=== PATIENT | male | born 1945 | race Caucasian/White ===

== ENCOUNTER 2016-05-30 22:45 | Inpatient (IN) | payer OTHER ==
--- NOTE | ~2016-05-30 | HP ---
History And Physical [address] [place]. [address] NAME: GERBER DREW : 43 STATUS : ADM IN [facility]#: [id number] AGE: 71 ADM/REG DATE : 05/31/16 MR#: [id number] REPORT SERV DATE: 05/31/16 DICTATED BY: MARCO ANTONIO BAE DATE: 05/31/16 REPORT STATUS : Draft TRANSCRIBED BY: MODPb DATE: 05/31/16 DATE OF ADMISSION: 05/30/2016 PRIMARY WET END HELPER: Nataly Driscoll D.O. CHIEF COMPLAINT: Shortness of breath and fluid buildup. HISTORY OF PRESENT ILLNESS: Mr. Drew is a 71-year-old, gentleman with history of chronic diastolic congestive heart failure, coronary artery disease with prior coronary artery bypass grafting, uncontrolled insulin-dependent diabetes mellitus type 2, chronic kidney disease stage 3 as well as history of aortic stenosis, status post transcatheter aortic valve replacement who presents to emergency department today with reports of worsening shortness of breath and fluid buildup. The patient was last admitted to our service in 09/2015 for acute on chronic diastolic congestive heart failure. The patient was successfully diuresed and then discharged to home. The patient is a very poor historian but best I can glean is that since his last admission to our service he has had multiple admissions to [facility] for CHF exacerbations as well as what appears to be a significant GI bleed. The patient states that during his admission for GI bleed he was taken off the Pradaxa that he had previously been on. The patient states that he has been compliant with his diuretic regimen although he cannot tell me the name or dosages of his diuretics. He does admit compliance to his sodium and fluid restriction but does readily admit to no longer keeping a close eye on his daily weights as he just does not feel up to it anymore. He primarily presents with worsening shortness of breath, orthopnea, PND, lower extremity edema as well as profound abdominal bloating and distention. He denies any fevers, night sweats, chills, chest pain, palpitations, cough, sputum production, nausea, vomiting, diarrhea, constipation, melena, hematochezia, or hemoptysis. He does report that at some point in the last few months Dr. Pantoja placed a Pantoja catheter for what I presume to be urinary retention and he currently has that in place. He also has some chronic lower extremity wounds that he has been doctoring himself for the past few weeks. The patient also complains of a diffuse primarily truncal pruritic erythematous rash that he is very anxious to learn what it is. Comprehensive review of systems otherwise negative unless listed in history of present illness. Initial evaluation in the emergency department is noted for a BNP of 1228. Chest x-ray shows some mild intravascular volume overload. Potassium is 5.4. Creatinine is 1.8. CT of the abdomen and pelvis showed moderate ascites as well as small to moderate right-sided greater than left-sided pleural effusion. The patient was given 1 mg of IV Bumex as well as some insulin glucose for his hyperkalemia and admitted to the Hospitalist Service. History And Physical [address] [address] NAME: GERBER DREW : 43 STATUS : ADM IN [facility]#: [id number] AGE: 71 ADM/REG DATE : 05/31/16 MR#: [id number] REPORT SERV DATE: 05/31/16 DICTATED BY: MARCO ANTONIO BAE DATE: 05/31/16 REPORT STATUS : Draft TRANSCRIBED BY: ROLDAN DATE: 05/31/16 PREVIOUS MEDICAL HISTORY: 1. Chronic diastolic congestive heart failure with ejection fraction of 50%. 2. Coronary artery disease with prior coronary artery bypass grafting. 3. Atrial fibrillation, no longer on anticoagulation secondary to GI bleed. 4. Hypertension. 5. Hyperlipidemia. 6. Insulin-dependent diabetes mellitus, type 2. Hemoglobin A1c of 8.8. 7. Chronic kidney stage III, baseline creatinine approximately 1.3 to 1.5. 8. Anemia of chronic disease. 9. Pulmonary hypertension. 10.Urinary retention. 11.History of GI bleed. SURGICAL HISTORY: 1. Pacemaker insertion. 2. Coronary artery bypass grafting. 3. Left carotid endarterectomy. 4. Transcatheter aortic valve replacement with placement of bioprosthetic aortic valve secondary to perivalvular leak. ALLERGIES: NO KNOWN DRUG ALLERGIES. HOME MEDICATIONS: The patient is unable to recall his medications. This will need to be confirmed by pharmacy in the morning. SOCIAL HISTORY: He is a former smoker. Denies alcohol. Denies illicit's. Denies any previous significant history of alcohol abuse. FAMILY MEDICAL HISTORY: Unknown. He is unable to provide me any history for his family. LABS AND IMAGIN. White count 7.9, hemoglobin 9.5, hematocrit is 30.8, platelet count is 218. INR is 1.4. 2. Sodium is 137, potassium 5.4, chloride 99, carbon dioxide 32, BUN 43, creatinine 1.80, glucose is 184, calcium is 8.4, magnesium is 2.6, protein 7.2, albumin is 3.5, bilirubin is 0.3, ALT is 13, AST 16, alkaline phosphatase is 87. 3. Troponin less than 0.02. BNP is 1228. 4. Chest x-ray per my review shows right greater left pleural effusion as well as mild intravascular volume overload and cardiomegaly. 5. CT scan of the abdomen and pelvis shows again right greater left pleural effusion as well as moderate ascites. Otherwise, no acute abdominopelvic pathology. 6. EKG per my review shows AV paced rhythm with no evidence of any T-wave changes secondary to hyperkalemia. No evidence of any acute ischemia or infarction. PHYSICAL EXAMINATION: VITAL SIGNS: Temperature is 97.0 degrees Fahrenheit, pulse is 67, respirations 20, saturating 95% on room air. Blood pressure initially 99/54, on recheck it is now 119/61, History And Physical [address] [place]. [address] NAME: GERBER DREW : 43 STATUS : ADM IN [facility]#: [id number] AGE: 71 ADM/REG DATE : 05/31/16 MR#: [id number] REPORT SERV DATE: 05/31/16 DICTATED BY: MARCO ANTONIO BAE DATE: 05/31/16 REPORT STATUS : Draft TRANSCRIBED BY: MODL DATE: 05/31/16 pulse of 60, saturating 100% on room air. GENERAL: The patient is awake, alert, in no acute distress, resting comfortably. He is a morbidly obese, chronically ill-appearing male. HEENT: Atraumatic and normocephalic. Moist mucous membranes. Pupils are equal, round, reactive to light and accommodation. Extraocular eye movements are intact. No scleral icterus. NECK: Some mild jugular venous distention. No carotid bruits. CARDIAC: Regular rate and rhythm. 2/6 systolic murmur, heard best over left lower sternal border. LUNGS: Decreased breath sounds in the bases. Some mild inspiratory crackles and rales as well. ABDOMEN: Obese and distended with a positive ascitic fluid wave. Hypoactive bowel sounds throughout. No rebound, guarding, rigidity. EXTREMITIES: The patient has a chronic venous stasis changes, bilateral lower extremities as well as [place] induration and 2+ lower extremity edema. The patient also has on the right lower extremity some medial and anterior superficial ulcerations with some serous drainage. SKIN: Warm and dry except for noted above. The patient also has a diffuse, deep, erythematous rash primarily over his truncal region with loss of excoriations from previous scratching. PSYCH: Affect appropriate. NEURO: Alert and oriented x3. Cranial nerves 2 through 12 grossly intact. Speech is normal. Gait is not assessed. ASSESSMENT AND PLAN: Now, Mr. Drew is a 71-year-old gentleman, history of chronic diastolic congestive heart failure who presents with evidence of volume overload. PROBLEM LIST: 1. Acute on chronic diastolic congestive heart failure. 2. Acute kidney injury on chronic kidney disease stage 3. 3. Hyperkalemia. 4. Insulin-dependent DM, type 2. 5. History of coronary artery disease. 6. History of atrial fibrillation. 7. Lower extremity venous stasis and venous stasis ulcers. 8. Rash. PLAN: 1. Acute on chronic diastolic congestive heart failure. We will initially diurese patient with IV Bumex. Place him on fluid and sodium restriction. Given it has been greater than six months since his last admission here and it appears that he has been to [facility] multiple times, we will repeat an echocardiogram to assess for ventricular function as well as assess for valvular function. We will also try to obtain [facility] records as it appears he has been admitted there multiple times in the recent past. We will also consult Cardiology for assistance. 2. Abdominal ascites. We will first attempt diuresis but if that is unsuccessful the patient may need therapeutic and diagnostic paracentesis. He denies any history of liver disease. However, CT of the abdomen and pelvis does is concern for possible History And Physical [address] [address] NAME: GERBER DREW : 43 STATUS : ADM IN [facility]#: [id number] AGE: 71 ADM/REG DATE : 05/31/16 MR#: [id number] REPORT SERV DATE: 05/31/16 DICTATED BY: MARCO ANTONIO BAE DATE: 05/31/16 REPORT STATUS : Draft TRANSCRIBED BY: ROLDAN DATE: 05/31/16 cirrhotic-type changes. Of note, his LFTs here are normal. 3. Acute kidney injury on chronic kidney disease stage III, likely secondary to cardiorenal syndrome. We will reassess with diuresis. 4. Hyperkalemia. No EKG changes noted. He has received insulin and glucose as well as diuretics. We will hold any potassium-sparing diuretics and/or nephrotoxic agents. We will also order some Kayexalate, place him on cardiac telemetry monitoring. Follow up repeat potassium level in the morning. 5. Lower extremity venous stasis with venous stasis ulcers. Wound Care consultation. Does not appear actively infected at this time. 6. Insulin-dependent diabetes mellitus type 2. Check hemoglobin A1c as well as place the patient on level 2 insulin sliding scale. 7. Coronary artery disease with prior coronary artery bypass grafting. The patient denies any chest pain. EKG and cardiac enzymes are unremarkable. 8. History of aortic stenosis, status post TAVR. Followup repeat echocardiogram for valvular function. 9. DVT prophylaxis. Heparin subcu. CODE STATUS: The patient wished to be full code. KARAN/ROLDAN Marco Antonio Bae MD / [id number] CC: MD Nataly Quan D.O.
--- NOTE | ~2016-05-30 | CN ---
Consultation Report [facility] [address] [place]. [address] NAME: GERBER CRUZ : 43 STATUS : ADM IN PAT#: [id number] AGE: 71 ADM/REG DATE : 05/31/16 MR#: [id number] REPORT SERV DATE: 05/31/16 DICTATED BY: DATE: REPORT STATUS : Draft TRANSCRIBED BY: MODL DATE: 05/31/16 CONSULTATION DATE OF CONSULTATION: 05/31/2016 REASON FOR CONSULTATION: Acute kidney injury with volume overload. HISTORY OF PRESENT ILLNESS: This is a fairly pleasant 71-year-old male patient, who has actually been seen previously in our practice once in [address] Butts for proteinuria with normal renal function and again by Dr. Mikala Guzmán on 12/13/2013. There is no notation of his baseline creatinine from our practice at those times; however, it is noted in dictations that his creatinine was "normal" with isolated evidence of proteinuria. Dr. Butts does mention in his initial consultation that he felt that likely his proteinuria was attributable to diabetic nephropathy. His initial workup included a renal ultrasound, which showed no evidence of hydronephrosis and no evidence of elevated postvoid residual. No renal artery stenosis. The patient was slated to be seen in followup and was not seen again until [address] Guzmán when he was sent back by his primary care provider to reestablish care. According to the patient's family member who was at bedside this morning, the patient has not been seen by a nephrology provider since that point. He presents to [facility] with a complaint of increasing volume overload with lower extremity edema, onset approximately three to five days ago and continued to worsen. The patient is chronically maintained on LUANA inhibitor as well as Bumex dosing at 2 mg and metformin for assistance in control of his diabetes. It is unclear baseline control of his diabetes or control of his hypertension as this is not routinely measured at home according to his family member who was at bedside. The patient is very hard of hearing and somewhat somnolent from his late night in the emergency department but responsive. Thusly, he is difficult to gather recent HPI or medical history from. Much of the medical history that is provided today is provided by his family member who is at bedside. The patient has been told in previous evaluations that he does have an enlarged prostate, but denies difficulty with urinary retention. Previous workups indicate that he had no evidence of urinary retention on ultrasound in our office in 2008 and he is said to have been evaluated by Dr. Pantoja, previous, but it is unclear on review with the patient's family member who is providing much of the medical information when his last workup was with Dr. Pantoja. The patient is sleeping this afternoon, but again is arousable and appropriate. He is hard of hearing. It appears his baseline creatinine here has been around 0.8 to 1.26 over the calender year of 2015. Again, he was seen in our office previous in durations of his care, but did not maintain followup. Appropriately on entry, his lisinopril, metformin, potassium, and Bumex have been held and attempts are underway to initiate diuresis with IV Bumex. PAST MEDICAL HISTORY: Positive for proteinuria as listed above with apparent normal renal function in [address] Kody Butts, with further evaluation by Dr. Mikala Guzmán in 12/2013 with the patient lost to follow up post that evaluation in 12/2013. The remainder of his medical history is positive for chronic diastolic congestive heart failure with ejection fraction of 50%, coronary artery disease with previous CABG, atrial Consultation Report [address] [place]. [address] NAME: GERBER CURZ : 43 STATUS : ADM IN [facility]#: [id number] AGE: 71 ADM/REG DATE : 05/31/16 MR#: [id number] REPORT SERV DATE: 05/31/16 DICTATED BY: DATE: REPORT STATUS : Draft TRANSCRIBED BY: MODPb DATE: 05/31/16 fibrillation with no current anticoagulation secondary to GI bleed, hypertension, hyperlipidemia, insulin-dependent diabetes mellitus with a hemoglobin A1c noted at 8.8, chronic kidney disease stage 3, baseline creatinine as listed above, anemia of chronic kidney disease, pulmonary hypertension, urinary retention, and history of GI bleed. PAST SURGICAL HISTORY: Includes pacemaker insertion, CABG, left carotid enterectomy, transcatheter aortic valve replacement with placement of bioprosthetic aortic valve secondary to perivalvular leak. ALLERGIES: HE LISTS NO KNOWN MEDICATION ALLERGIES. MEDICATIONS: Active medications on entry are as follows: ProAir HFA two puffs inhaled q.6 hours p.r.n., albuterol one neb b.i.d. p.r.n., ASA 81 mg daily, Lipitor 10 mg p.o. q.h.s., Bumex 2 mg p.o. b.i.d., carvedilol 25 mg p.o. b.i.d., Ferrex 150 mg p.o. daily, Advair one puff inhaled daily p.r.n., Levemir at 20 units subcu q.h.s. insulin NovoLog via sliding scale, Prinivil 10 mg p.o. daily, metformin 1000 mg p.o. b.i.d., Mycostatin one topical p.r.n., Prilosec 20 mg p.o. daily, p.r.n., Percocet 1 tablet p.o. q.6 hours p.r.n., Klor-Con 20 mEq p.o. daily, Desyrel 100 mg p.o. q.h.s., stool softener 1 capsule daily p.r.n. with no specifics provided regarding name of medication. SOCIAL HISTORY: No ETOH. No illicit drugs. No tobacco. He does have a remote history of smoking approximately 2 to 2-1/2 packs a day according to his family member who is present but has quit many years ago. FAMILY HISTORY: Noncontributory and not reviewed during this consultation and dictation. PHYSICAL EXAMINATION: VITAL SIGNS: Blood pressure 142/61, temperature 96.6, respiratory rate 18, heart rate is 59 beats per minute, and he is on 100% oxygen saturation. GENERAL: He is somnolent, but arousable and appropriate. Very hard of hearing. HEENT: Normocephalic and atraumatic. Normal ocular movements. No scleral icterus. No conjunctival pallor is appreciated. NECK: Supple without thyromegaly. No JVD or mass. CHEST: Shows positive S1 and S2. No rubs or gallops. LUNGS: Diminished. Clear to auscultation throughout. Otherwise with normal expansion effort bilaterally without noted rhonchi or wheezes. GASTROINTESTINAL: Shows a rounded abdomen which is positive for ascites. GENITOURINARY: Examination is deferred. EXTREMITIES: Show positive pulses to all four extremities. He does have noticeable 2+ to 3+ lower extremity edema bilaterally with wrappings of loose gauze. SKIN: Warm, dry, and intact to visualized surfaces. No rash, lesions, or ecchymosis. He does have some redness excoriation to his bilateral lower extremities. NEUROLOGIC: He appears to be grossly intact. Nonfocal. He is somewhat somnolent, but arousable and hard of hearing. He is of appropriate mood and affect. Consultation Report [facility] [address] [place]. [address] NAME: GERBER CRUZ : 43 STATUS : ADM IN PAT#: [id number] AGE: 71 ADM/REG DATE : 05/31/16 MR#: [id number] REPORT SERV DATE: 05/31/16 DICTATED BY: DATE: REPORT STATUS : Draft TRANSCRIBED BY: MODL DATE: 05/31/16 LABORATORY DATA: Pertinent laboratories and imaging to this evaluation: Most recent troponin less than 0.02. CT of the abdomen and pelvis shows small effusions, moderate amount of ascites, cardiomegaly, prior TAVR replacement, question of early development of cirrhosis of the liver Chest, PA and lateral: Prior TAVR as well as remote CABG with pacemaker. Small right pleural effusion and some mild atelectasis at the left lung base. Urinalysis is hazy in appearance, negative for protein, glucose, or ketones with a large amount leukocyte esterase, with 14 RBCs per high-powered field, with greater than 182 white blood cells per high-powered field, and few bacteria. Electrolyte profile shows sodium 137, potassium 5.4, chloride 99, CO2 of 32, BUN 43, creatinine 1.80, reflected GFR at 37 mL/minute, glucose of 184. Calcium 8.4. Magnesium 2.6. Alkaline phos 87, ALT and AST are 13 and 16 respectively. Troponin less than 0.02. B-natriuretic peptide 1228.4. CBC: White blood cell count is 7.9, RBC 3.26, hemoglobin 9.5, hematocrit 30.8, and platelets 218. IMPRESSION AND PLAN: This is a 71-year-old male patient with acute kidney injury with previous baseline creatinine noted to be at 0.8 to 1.26, now at 1.8, admitted with increasing lower extremity edema, noted ascites, and acute kidney injury. He has had previous evaluations by Dr. Kody Butts in 2008 for proteinuria, which was felt to be relatable to diabetic nephropathy with patient not seeking followup after the initial evaluation, then request for re-evaluation in 12/[address] Mikala Guzmán, with the patient failing to keep slated follow-ups that without evaluation at that point. He does not exhibit identified protein in his urine on urinalysis provided today. Metformin, lisinopril, potassium, and Bumex have all been held appropriately. There is diuresis efforts are underway with IV Bumex at 1 mg IV. Noted in review his blood pressures are sub 100 systolic blood pressure readings which may indicate some level of acute tubular necrosis due to hypoperfusion with hypotension. Also, we must consider the possibility of urinary retention with previous notations of an enlarged prostate. No urinary output identified at this point. He does possibly have a urinary tract infection judging by his urinalysis, which will be deferred to the primary team. We would avoid nephrotoxic agents such as Bactrim to treat this if there are plans are to provide IV antibiotic coverage going forward. In regard to his current acute kidney injury, check his postvoid residual, check urine sodium, urine creatinine, and urine urea as he is chronically maintained on p.o. diuretics. Continue dosing of Bumex, but increase to 2 mg IV q.8. Albumin is normal at 3.5 on 05/30/2016. We will not provide albumin dosing to provide assistance in mobilization of fluid. We will place the patient on strict I's and O's daily weights. Restrict sodium and restrict fluid intake. Follow the patient closely with serial laboratories and modify treatment plan based on clinical presentation of the patient's laboratory results, further consultation with renal attending. We appreciate consultation. We are glad to follow. Consultation Report [facility] [id number] [facility] [place]. [address] NAME: GERBER CRUZ : 43 STATUS : ADM IN PAT#: [id number] AGE: 71 ADM/REG DATE : 05/31/16 MR#: [id number] REPORT SERV DATE: 05/31/16 DICTATED BY: DATE: REPORT STATUS : Draft TRANSCRIBED BY: ROLDAN DATE: 05/31/16 /ROLDAN Vernon Lui NP / [id number] CC: Andrei Pena MD
--- NOTE | ~2016-05-30 | DS ---
Discharge Summary [address] [id number] [place]. [address] NAME: GERBER CRUZ : 43 STATUS : DIS IN PAT#: [id number] AGE: 71 ADM/REG DATE : 05/31/16 MR#: [id number] REPORT SERV DATE: 06/04/16 DICTATED BY: FLAKO MATTHEWS DATE: 06/03/16 REPORT STATUS : Draft TRANSCRIBED BY: MODL DATE: 06/03/16 ADMISSION DATE: 05/31/2016 DISCHARGE DATE: 06/03/2016 DISCHARGE DIAGNOSES: 1. Acute diastolic heart failure. 2. Acute kidney injury on chronic kidney disease, stage III. Resolved to baseline. Most recent creatinine of 1.16. 3. Ascites. 4. Hypothyroidism, that is new. 5. Urinary tract infection, Escherichia coli, Klebsiella in the setting of a chronic Pantoja catheter. 6. Diabetes type 2, hemoglobin A1c of 6.0. 7. History of coronary artery disease, coronary artery bypass grafting, TAVR, and pacemaker. 8. Nonspecific macular papular skin rash on trunk. DISCHARGE MEDICATIONS: Aspirin 81 mg daily; Lipitor 10 mg at bedtime; Coreg 25 mg twice a day; Ferrex 150 mg daily; Duricef 500 mg twice a day for a total of nine more doses; Levemir 22 units subcutaneously at bedtime; Synthroid 25 mcg daily, new prescription for this; Bumex 2 mg p.o. twice a day; Glucophage 1000 mg twice a day; Humalog on a sliding scale with meals; ProAir inhaler 2 puffs every 8 hours p.r.n.; potassium chloride 20 mEq daily; trazodone 100 mg at bedtime p.r.n. for insomnia; Percocet 10/325 one tablet every 6 hours p.r.n.; lisinopril 10 mg daily; Mycostatin apply topically daily p.r.n.; Prilosec 20 mg daily; Advair Diskus 250/50 one puff inhaled daily; albuterol nebulizers twice a day p.r.n. for shortness of breath; and stool softener [id number] daily. HISTORY OF PRESENT ILLNESS: 71-year-old white male, who presented with shortness of breath and fluid overload. Please see the initial H and P of Dr. Kody Stewart as the patient is admitted to the Hospitalist Service for further evaluation and treatment. CONSULTANTS DURING THIS ADMISSION: Include [facility] and also Cardiology Dr. Driscoll. PROCEDURES AND IMAGING DURING THIS ADMISSION: Include a CT of the abdomen and pelvis showing small effusions, moderate amount of ascites, cardiomegaly, and prior TAVR replacement. An abdominal ultrasound showing small volume ascites, and thickened gallbladder probably due to ascites. An echocardiogram showing a severely dilated heart with an ejection fraction of 45% status post TAVR procedure. HOSPITAL COURSE: Given the patient's extreme volume overload, he was treated aggressively with IV diuretics in the form of IV Bumex, and given the fact that he was in some acute kidney injury, [facility] was consulted for helping his management. He diuresed well with the IV Bumex, and his edema and ascites both decreased substantially, and the patient was able to then mobilize out of bed, and began to feel somewhat better with his symptoms of shortness of breath. His kidney function improved each day with his creatinine Discharge Summary [address] [address] NAME: GERBER CRUZ : 43 STATUS : DIS IN PAT#: [id number] AGE: 71 ADM/REG DATE : 05/31/16 MR#: [id number] REPORT SERV DATE: 06/04/16 DICTATED BY: FLAKO MATTHEWS DATE: 06/03/16 REPORT STATUS : Draft TRANSCRIBED BY: ROLDAN DATE: 06/03/16 falling from the high of 1.[address] down to his discharge of 1.16. Of note, his TSH was checked and came back 4.300, so he was placed on a low-dose Synthroid with instructions to recheck his TSH in four to six weeks. The patient described a rash across his trunk and abdomen that he had for approximately three months. I discussed the case with the accuracy expert Dr. Sharp, and he will follow up outpatient with her. The patient made continued improvement with his diuresis, and was finally able to be switched over to p.o. diuretics; however, he did continue to require oxygen at 2 L as his ambulatory sat on room air dropped all the way to 86%. Urine was tested during this admission, given his chronic Pantoja catheter did come back with growth of a Klebsiella and E. coli. He was started on Keflex antibiotics, and he will also be following up outpatient Urology for second opinion, given his chronic Pantoja catheter that he states that he has had for seven months. I have instructed him to follow up with his primary care in next three to four weeks. He is to keep his [facility] appointments. He will have home O2 at 2 L nasal cannula continuously with Home Health to evaluate at his residence. He is to keep daily weights to maintain a 2 L fluid restriction in 24 hours, and he will also be following up with Dr. Driscoll outpatient on 07/01/2016 as well. Given his clear improvement in his symptoms and weight, and fluid overload, he was felt safe for discharge home on 06/03/2016 with the above medication regimen and follow up plans. Questions were answered at bedside extensively. The patient was in agreement with this plan going forward. Please note, greater than 30 minutes was spent on this discharge for medication teaching, followup planning, and further disposition. CSC/MODL Flako Matthews NP / [id number] CC: Andrei Lopez MD
[~2016-05-30 22:45] MED LIST: ADVAIR115P INH; ADVAIR250 INH; ASAB PO; AUG500 PO; C5 PO; CARDIZEM LA360 MG PO; COMBIVENT INH; COREG12 PO; COREG25 PO; DIABETA5 PO; GLUCOPHAGE1000 MG PO; HUMALOGPEN SC; JANUVIA100 MG PO; KLOR-CON M1010 MEQ PO; KLOR-CON M2020 MEQ PO; L40 PO; LAN25 PO; LANTUS SC; LEVEMFLXPN SC; LIOR10 PO; LIPITOR10 PO; LISINOPRIL40 MG PO; LOP25 PO; LORCET PO; NORCO1 TA1 PO; NOVOPEN SC; PLAVIX PO; PRADAXA150 MG PO; PRILOSEC40 MG PO; PROAIR HFA INH; ULTRAM50 PO; VICTOZA18 MG/3 ML SC; Z5 PO; ZANTAC 150 PO; ZANTAC150 MG PO; ZOCOR20 PO
[2016-05-30 23:18] LABS: BASOPHILS 0.8 %; BASOPHILS ABSOLUTE 0.06 10/3/uL (0.0-0.16); EOSINOPHILS 5.4 %; EOSINOPHILS ABSOLUTE 0.43 10/3/uL (0.0-0.53); HEMOGLOBIN 9.5 g/dL (13.6-17.8); IMMATURE GRANULOCYTES 0.3 %; IMMATURE GRANULOCYTES ABSOLUTE 0.02 10/3/uL (0.0-0.11); LYMPHOCYTES 12.7 %; LYMPHOCYTES ABSOLUTE 1.01 10/3/uL (0.67-4.30); MEAN CORPUS HGB CONC 30.8 g/dL (32.0-36.0); MEAN CORPUSCULAR HEMOGLOB 29.1 pg (26.0-34.0); MEAN CORPUSCULAR VOLUME 94.5 fL (80-100); MEAN PLATELET VOLUME 9.4 fL (9.2-13.0); MONOCYTES 9.2 %; MONOCYTES ABSOLUTE 0.73 10/3/uL (0.21-1.20); NEUTROPHILS 71.6 %; NEUTROPHILS ABSOLUTE 5.68 10/3/uL (2.02-8.40); PLATELET COUNT 218 10/3/uL (150-400); RBC DISTRIBUTION WIDTH 18.2 % (12.0-16.0); RED CELL COUNT 3.26 10/6/uL (4.7-6.1); WHITE BLOOD CELLS 7.9 10/3/uL (4.5-10.5)
[2016-05-30 23:20] LABS: ER CBC TAT 0 Hrs 05 MinsNP; HEMATOCRIT 30.8 % (40.0-51.0); MANUAL DIFF NO %
[2016-05-30 23:24] LABS: INTERNATIONAL NORMAL RATI 1.4 UNITS (-); PARTIAL THROMBO TIME 33.1 SEC (22.5-37.2)
[2016-05-30 23:26] LABS: PROTIME (NOT ORD) 17.2 SEC (12.0-14.5)
[2016-05-30 23:35] LABS: BUN (BLOOD UREA NITROGEN) 43 MG/DL (6-23); CALCIUM, SERUM 8.4 MG/DL (8.5-10.4); CHEST PAIN PROFILE TAT 0 Hrs 22 Mins; CHLORIDE, SERUM 99 MMOL/L (96-112); CO2 (CARBON DIOXIDE) 32 MMOL/L (24-34); GFR AFRICAN AMERICAN 43 ML/MIN (>=60); GFR NON AFRICAN AMERICAN 37 ML/MIN (>=60); GLUCOSE, SERUM 184 MG/DL (60-99); POTASSIUM, SERUM 5.4 MMOL/L (3.5-5.3); SODIUM, SERUM 137 MMOL/L (135-148); TROPONIN I <0.02 NG/ML (<0.05)
[2016-05-31 04:09] LABS: ALBUMIN 3.5 G/DL (3.5-5.0); ALKALINE PHOSPHATASE 87 U/L (45-117); DIRECT BILIRUBIN 0.2 MG/DL (0.0-0.4); INDIRECT BILIRUBIN(NOT ORDER) 0.1 MG/DL (0.1-0.9); SGPT(ALT) 13 U/L (5-65); TOTAL BILIRUBIN 0.3 MG/DL (0-1.2); TOTAL PROTEIN 7.2 G/DL (6.0-8.5)
[2016-05-31 04:21] LABS: SGOT(AST) 16 U/L (5-40)
[2016-05-31] MEDS ORDERED: UNABLE TO RECALL (05:38)
[2016-05-31] MEDS ORDERED: KLOR-CON M2020 MEQ PO (07:12)
[2016-05-31] MEDS ORDERED: PROAIR HFA INH (07:12)
[2016-05-31] MEDS ORDERED: TRAZ100 PO (07:13)
[2016-05-31] MEDS ORDERED: FERREX 150150 MG PO (07:13)
[2016-05-31] MEDS ORDERED: PERCOCET 10/3251 TAB PO (07:14)
[2016-05-31] MEDS ORDERED: BUM2 PO (07:14)
[2016-05-31] MEDS ORDERED: PRIN10 PO (07:15)
[2016-05-31] MEDS ORDERED: MYCOSOINT TOP (07:16)
[2016-05-31] MEDS ORDERED: COREG25 PO (07:17)
[2016-05-31] MEDS ORDERED: GLUCOPHAGE1000 MG PO (07:17)
[2016-05-31] MEDS ORDERED: LEVEMFLXPN SC (07:18)
[2016-05-31] MEDS ORDERED: HUMALOGPEN SC (07:19)
[2016-05-31] MEDS ORDERED: LIPITOR10 PO (07:20)
[2016-05-31] MEDS ORDERED: ASAB PO (07:21)
[2016-05-31] MEDS ORDERED: PRILO PO (07:21)
[2016-05-31] MEDS ORDERED: ADVAIR250 INH (07:22)
[2016-05-31] MEDS ORDERED: ALBUTEROL0.083 % INH (07:23)
[2016-05-31] MEDS ORDERED: STOOL SOFTENER PO (07:26)
[2016-05-31 09:51] LABS: CK-MB 1.7 NG/ML; CPK 44 U/L (0-200); TROPONIN I 0.02 NG/ML (<0.05)
[2016-05-31 10:27] LABS: ASCORBIC ACID (UR NOT ORDER) NEG (NEG); BILIRUBIN, URINE NEGATIVE (NEG); KETONE, URINE NEGATIVE (NEG); LEUKOCYTE ESTERASE(NOT OR LARGE (NEG); WBC (NOT ORDERED) (RFLEX) > 182 (0-5)
[2016-05-31 10:50] LABS: CREATININE, URINE 51.9 MG/DL
[2016-05-31 14:09] LABS: CPK 41 U/L (0-200); TROPONIN I <0.02 NG/ML (<0.05)
[2016-05-31 14:11] LABS: CK-MB 1.4 NG/ML
[2016-05-31 17:11] LABS: ALBUMIN 3.2 G/DL (3.5-5.0); BUN (BLOOD UREA NITROGEN) 41 MG/DL (6-23); CALCIUM, SERUM 8.8 MG/DL (8.5-10.4); CHLORIDE, SERUM 99 MMOL/L (96-112); CO2 (CARBON DIOXIDE) 29 MMOL/L (24-34); CREATININE 1.44 MG/DL (0.70-1.30); GFR AFRICAN AMERICAN 56 ML/MIN (>=60); GFR NON AFRICAN AMERICAN 48 ML/MIN (>=60); POTASSIUM, SERUM 4.6 MMOL/L (3.5-5.3); SODIUM, SERUM 135 MMOL/L (135-148)
[2016-05-31 17:12] LABS: GLUCOSE, SERUM 124 MG/DL (60-99); PHOSPHORUS, SERUM 4.1 MG/DL (2.5-4.5)
[2016-06-01 04:01] LABS: BASOPHILS 0.7 %; BASOPHILS ABSOLUTE 0.05 10/3/uL (0.0-0.16); EOSINOPHILS 7.2 %; HEMATOCRIT 28.4 % (40.0-51.0); HEMOGLOBIN 8.9 g/dL (13.6-17.8); IMMATURE GRANULOCYTES 0.1 %; IMMATURE GRANULOCYTES ABSOLUTE 0.01 10/3/uL (0.0-0.11); LYMPHOCYTES 11.9 %; LYMPHOCYTES ABSOLUTE 0.83 10/3/uL (0.67-4.30); MANUAL DIFF NO %; MEAN CORPUS HGB CONC 31.3 g/dL (32.0-36.0); MEAN CORPUSCULAR HEMOGLOB 29.3 pg (26.0-34.0); MEAN CORPUSCULAR VOLUME 93.4 fL (80-100); MEAN PLATELET VOLUME 10.1 fL (9.2-13.0); MONOCYTES 9.1 %; MONOCYTES ABSOLUTE 0.63 10/3/uL (0.21-1.20); NEUTROPHILS ABSOLUTE 4.94 10/3/uL (2.02-8.40); NUCLEATED RED BLOOD CELLS 0.3 /100WBC (0-0); PLATELET COUNT 215 10/3/uL (150-400); RBC DISTRIBUTION WIDTH 18.1 % (12.0-16.0); RED CELL COUNT 3.04 10/6/uL (4.7-6.1)
[2016-06-01 04:02] LABS: ALBUMIN 3.2 G/DL (3.5-5.0); BUN (BLOOD UREA NITROGEN) 38 MG/DL (6-23); CALCIUM, SERUM 8.7 MG/DL (8.5-10.4); CHLORIDE, SERUM 101 MMOL/L (96-112); CO2 (CARBON DIOXIDE) 33 MMOL/L (24-34); CREATININE 1.35 MG/DL (0.70-1.30); GFR AFRICAN AMERICAN 60 ML/MIN (>=60); GFR NON AFRICAN AMERICAN 52 ML/MIN (>=60); POTASSIUM, SERUM 4.2 MMOL/L (3.5-5.3); SODIUM, SERUM 140 MMOL/L (135-148)
[2016-06-01 04:03] LABS: GLUCOSE, SERUM 166 MG/DL (60-99)
[2016-06-02 06:40] LABS: BASOPHILS 0.5 %; BASOPHILS ABSOLUTE 0.04 10/3/uL (0.0-0.16); EOSINOPHILS 7.3 %; EOSINOPHILS ABSOLUTE 0.55 10/3/uL (0.0-0.53); HEMATOCRIT 29.3 % (40.0-51.0); IMMATURE GRANULOCYTES 0.3 %; IMMATURE GRANULOCYTES ABSOLUTE 0.02 10/3/uL (0.0-0.11); LYMPHOCYTES 9.8 %; LYMPHOCYTES ABSOLUTE 0.74 10/3/uL (0.67-4.30); MEAN CORPUS HGB CONC 30.7 g/dL (32.0-36.0); MEAN CORPUSCULAR HEMOGLOB 29.1 pg (26.0-34.0); MEAN CORPUSCULAR VOLUME 94.8 fL (80-100); MEAN PLATELET VOLUME 9.7 fL (9.2-13.0); MONOCYTES 11.5 %; MONOCYTES ABSOLUTE 0.87 10/3/uL (0.21-1.20); NEUTROPHILS 70.6 %; NEUTROPHILS ABSOLUTE 5.35 10/3/uL (2.02-8.40); PLATELET COUNT 215 10/3/uL (150-400); RBC DISTRIBUTION WIDTH 18.1 % (12.0-16.0); RED CELL COUNT 3.09 10/6/uL (4.7-6.1); WHITE BLOOD CELLS 7.6 10/3/uL (4.5-10.5)
[2016-06-02 06:41] LABS: MANUAL DIFF NO %
[2016-06-02 06:54] LABS: ALBUMIN 3.4 G/DL (3.5-5.0); BUN (BLOOD UREA NITROGEN) 35 MG/DL (6-23); CHLORIDE, SERUM 97 MMOL/L (96-112); CO2 (CARBON DIOXIDE) 34 MMOL/L (24-34); CREATININE 1.29 MG/DL (0.70-1.30); GFR AFRICAN AMERICAN 64 ML/MIN (>=60); GFR NON AFRICAN AMERICAN 55 ML/MIN (>=60); GLUCOSE, SERUM 132 MG/DL (60-99); PHOSPHORUS, SERUM 3.1 MG/DL (2.5-4.5); SODIUM, SERUM 137 MMOL/L (135-148)
[2016-06-03 04:20] LABS: BASOPHILS 0.7 %; BASOPHILS ABSOLUTE 0.05 10/3/uL (0.0-0.16); EOSINOPHILS 7.4 %; EOSINOPHILS ABSOLUTE 0.51 10/3/uL (0.0-0.53); HEMATOCRIT 29.7 % (40.0-51.0); HEMOGLOBIN 9.2 g/dL (13.6-17.8); IMMATURE GRANULOCYTES 0.3 %; IMMATURE GRANULOCYTES ABSOLUTE 0.02 10/3/uL (0.0-0.11); LYMPHOCYTES 11.7 %; LYMPHOCYTES ABSOLUTE 0.81 10/3/uL (0.67-4.30); MEAN CORPUSCULAR HEMOGLOB 29.9 pg (26.0-34.0); MEAN CORPUSCULAR VOLUME 96.4 fL (80-100); MEAN PLATELET VOLUME 10.1 fL (9.2-13.0); MONOCYTES 10.1 %; NEUTROPHILS 69.8 %; NEUTROPHILS ABSOLUTE 4.83 10/3/uL (2.02-8.40); PLATELET COUNT 219 10/3/uL (150-400); RBC DISTRIBUTION WIDTH 18.1 % (12.0-16.0); RED CELL COUNT 3.08 10/6/uL (4.7-6.1); WHITE BLOOD CELLS 6.9 10/3/uL (4.5-10.5)
[2016-06-03 04:22] LABS: MANUAL DIFF NO %
[2016-06-03 04:37] LABS: ALBUMIN 3.5 G/DL (3.5-5.0); ALKALINE PHOSPHATASE 80 U/L (45-117); BUN (BLOOD UREA NITROGEN) 32 MG/DL (6-23); CALCIUM, SERUM 8.8 MG/DL (8.5-10.4); CHLORIDE, SERUM 99 MMOL/L (96-112); CO2 (CARBON DIOXIDE) 33 MMOL/L (24-34); CREATININE 1.16 MG/DL (0.70-1.30); GFR AFRICAN AMERICAN 73 ML/MIN (>=60); GFR NON AFRICAN AMERICAN 63 ML/MIN (>=60); GLOBULIN 3.6 G/DL (2.5-4.1); GLUCOSE, SERUM 130 MG/DL (60-99); POTASSIUM, SERUM 4.1 MMOL/L (3.5-5.3); SGOT(AST) 15 U/L (5-40); SGPT(ALT) 12 U/L (5-65); SODIUM, SERUM 140 MMOL/L (135-148); TOTAL BILIRUBIN 0.4 MG/DL (0-1.2); TOTAL PROTEIN 7.1 G/DL (6.0-8.5)
[2016-06-03] MEDS ORDERED: K500 PO (13:18)
[2016-06-03] MEDS ORDERED: SYN.025B PO (13:19)
== END 2016-06-03 15:09 | disposition home health service (06) | DRG 682 ==
LOC: ER 22:45 → 5NO 05-31 06:19
PROVIDERS: Emergency Medicine; Internal Medicine; Registered Nurse
DX: N17.9 Acute kidney failure, unspecified (principal); I50.33 Acute on chronic diastolic (congestive) heart failure; E11.22 Type 2 diabetes mellitus with diabetic chronic kidney disease; R18.8 Other ascites; E11.65 Type 2 diabetes mellitus with hyperglycemia; E87.5 Hyperkalemia; I13.0 Hypertensive heart and chronic kidney disease with heart failure and stage 1 through stage 4 chronic kidney disease, or unspecified chronic kidney disease; N39.0 Urinary tract infection, site not specified; N18.3 Chronic kidney disease, stage 3 (moderate); Z79.4 Long term (current) use of insulin; I25.10 Atherosclerotic heart disease of native coronary artery without angina pectoris; I83.009 Varicose veins of unspecified lower extremity with ulcer of unspecified site; Z95.1 Presence of aortocoronary bypass graft; Z95.2 Presence of prosthetic heart valve; Z79.51 Long term (current) use of inhaled steroids; E03.9 Hypothyroidism, unspecified; B96.20 Unspecified Escherichia coli [E. coli] as the cause of diseases classified elsewhere; Z79.82 Long term (current) use of aspirin
CPT/HCPCS: 71020; 74176; 76700; 80048; 80053; 80069; 80076; 81001; 82550; 82553; 82570; 82962; 83036; 83735; 83880; 83935; 84300; 84443; 84484; 85025; 85610; 85730; 87077; 87086; 87186; 93005; 96374; 96375; 97116-GP; 97162-GP; 99285; A9270-GY; C8929; G8978-CK-GP; G8979-CI-GP; J1200; Q9957